=== PATIENT | female | born 1985 | race Asian ===

== ENCOUNTER 2018-09-07 05:56 | Inpatient (IN) | payer BC ==
[2018-09-07] MEDS ORDERED: hydrALAZINE 20 MG/ML VIAL SLOW IVP PRN ×2 (06:21→11:14)
[2018-09-07] MEDS ORDERED: Bicitra 30 ML UDCUP PO SCH (06:21)
[2018-09-07] MEDS ORDERED: CEFAZOLIN 2 GM in Premix Bag 1 BAG IVPB SCH (06:21)
[2018-09-07] MEDS ORDERED: Promethazine HCl 25 MG/ML VIAL IM PRN ×2 (06:21→08:36)
[2018-09-07] MEDS ORDERED: Ondansetron PF 4 MG/2 ML Vial IVP PRN ×3 (06:21→11:14)
[2018-09-07] MEDS ORDERED: Lactated Ringer's 1,000 ML IV SCH (06:21)
[2018-09-07 06:31] VITALS: BMI 32.0
[2018-09-07] MEDS ORDERED: Oxytocin 10 UNITS/ML VIAL ONE (06:41)
[2018-09-07] MEDS ORDERED: MORPHINE 5 MG/10 ML PF VIAL ONE (06:41)
[2018-09-07] MEDS ORDERED: Ondansetron PF 4 MG/2 ML Vial ONE ×2 (06:42→16:01)
[2018-09-07] MEDS ORDERED: Phenylephrine HCL 10 MG/ML VIAL ONE (06:42)
[2018-09-07] MEDS ORDERED: Ketorolac Tromethamine 30 MG/ML VIAL ONE ×2 (06:42→16:01)
[2018-09-07] MEDS ORDERED: ePHEDrine/0.9% NaCl/PF SYRINGE 50 mg/10 ml ONE (06:43)
[2018-09-07 06:48] LABS: Mean Corpuscular HGB CONC 33.1 g/dL (32.0-36.0); Mean Corpuscular Hemoglobin 28.1 pg (27.0-31.0); Mean Corpuscular Volume 84.7 fL (78.0-98.0); Mean Platelet Volume 7.5 fL (7.4-10.4); Platelet Count 240 thou/uL (130-400); RBC Distribution Width 15.8 % (11.5-14.5); Red Blood Cell (RBC) Count 4.26 mill/uL (4.20-5.40); White Blood Cell (WBC) Count 9.5 thou/uL (4.8-10.8)
[2018-09-07] MEDS ORDERED: Clindamycin/D5W 900 mg/50 ml Premix Bag ONE (07:22)
[2018-09-07] MEDS ORDERED: Gentamicin 80 MG/2 ML VIAL IVPB SCH (07:30)
[2018-09-07] MEDS ORDERED: Clindamycin/D5W 900 MG in Premix Bag 1 BAG IVPB SCH (07:30)
[2018-09-07] MEDS ORDERED: Ropivacaine 0.2% 550 ML 750 ML NERVE BLCK SCH (07:30)
[2018-09-07 07:34] LABS: HBSAg Index 0.24 S/CO (0-0.99); Hep B Surf Ag Non-Reactive S/CO (NonReactive); Syphilis Antibody Nonreactive (Nonreactive); Syphilis Antibody Index 0.02 S/CO (<1.00 Non-Reactive)
[2018-09-07] MEDS ORDERED: Gentamicin Sulfate 120 MG in Premix Bag 1 BAG IVPB SCH (07:45)
[2018-09-07] MEDS ORDERED: Ropivacaine HCl/PF 750 ML in Premix Bag 1 BAG NERVE BLCK SCH (07:45)
[2018-09-07] MEDS ORDERED: Bupivacaine 0.25% HCL 30 ML VIAL ONE (08:18)
[2018-09-07] MEDS ORDERED: diphenhydrAMINE 50 MG/ML VIAL IVP PRN (08:36)
[2018-09-07] MEDS ORDERED: Naloxone HCl 0.4 mg/ml Vial IVP PRN ×2 (08:36)
[2018-09-07] MEDS ORDERED: Meperidine HCl/PF 25 MG/ML VIAL SLOW IVP PRN (08:36)
[2018-09-07] MEDS ORDERED: HYDROmorphone 2 MG/ML VIAL SLOW IVP PRN (08:36)
[2018-09-07] MEDS ORDERED: Naloxone HCl 0.4 mg/ml Vial IV PRN (08:36)
[2018-09-07] MEDS ORDERED: Ketorolac Tromethamine 30 MG/ML VIAL IVP PRN (08:36)
[2018-09-07] MEDS ORDERED: Ondansetron HCl/PF 4 MG/2 ML Vial IVP PRN (08:36)
[2018-09-07] MEDS ORDERED: Promethazine HCl 25 MG SUPP PR PRN (08:36)
[2018-09-07] MEDS ORDERED: L&D-Morphine 4 MG/ML VIAL SLOW IVP PRN (08:36)
[2018-09-07] MEDS ORDERED: Communication Order-Pharmacy FS SCH (08:45)
[2018-09-07] MEDS ORDERED: NS / Oxytocin 40 units/1000ml 1,000 ML ONE (11:12)
[2018-09-07] MEDS ORDERED: NS / Oxytocin 40 units/1000ml 1,000 ML IV SCH (11:14)
[2018-09-07] MEDS ORDERED: diphenhydrAMINE 25 MG CAP PO PRN (11:14)
[2018-09-07] MEDS ORDERED: Bisacodyl 10 MG SUPP PR PRN (11:14)
[2018-09-07] MEDS ORDERED: Simethicone Chewable 80 MG TAB PO PRN (11:14)
[2018-09-07] MEDS ORDERED: HYDROcodone/Acetaminophen 5/325 mg Tablet PO PRN ×2 (11:14)
[2018-09-07] MEDS: Ibuprofen 800 MG TAB PO SCH ×2 (13:01→21:39)
--- NOTE | 2018-09-07 14:51 | OP ---
DATE OF PROCEDURE: 09/07/2018 PREOPERATIVE DIAGNOSES: 1. A 33-year-old female at 37 weeks. 2. Previous section with myomectomy. 3. Indicated delivery at 37 weeks. POSTOPERATIVE DIAGNOSES: 1. A 33-year-old female at 37 weeks. 2. Previous section with myomectomy. 3. Indicated delivery at 37 weeks. PROCEDURES PERFORMED: Repeat low-transverse section through vertical skin incision and On-Q pump placement. KNOT CUTTER: Dayana Soler PA-C, and Padmaja Bray, Real Estate Lawyer. COMPLICATIONS: None ESTIMATED BLOOD LOSS: 600 mL. ANESTHESIA: Spinal per Dr. Campbell. OPERATIVE FINDINGS: 1. Low-transverse hysterotomy without extension. Vigorous male infant, 6 pounds 14 ounces. Apgars 8 and 9 to [facility]. 2. Normal-appearing uterus, tubes, and ovaries bilaterally. 3. No intraabdominal adhesive disease. 4. Surgical site is hemostatic. DESCRIPTION OF PROCEDURE: The patient was taken back to the OR with IV fluids running. When she was in the OR, spinal anesthesia was obtained, and the patient in dorsal supine position with left lateral tilt. Prophylactic antibiotics were administered. The abdomen was prepped and draped and a Sellers catheter was placed using sterile technique. The surgeons were scrubbed in and anesthesia was tested and found to be adequate. A midline vertical skin incision was made with a scalpel, carried down through a previous scar through. The subcutaneous tissue was incised with a scalpel down to the level of the rectus muscle. The rectus fascia was then in the midline. The peritoneum was easily visualized and bluntly entered. The peritoneum was stretched laterally. An Suresh O retractor was placed into the peritoneal cavity for retraction, visualization, and protection of the wound. A bladder flap was created and the bladder was dissected away from the planned hysterotomy site. A low-transverse hysterotomy was made with a scalpel through a very thin lower uterine segment. The infant was then delivered without difficulty through the hysterotomy. The nose and mouth were suctioned. Cord was doubly clamped and cut, and the was handed off to special care nurse in attendance. Cord blood was collected. The placenta was delivered. Uterus was then exteriorized, massaged to firm, and cleared of clot and debris. The uterus was returned to the abdominal cavity. The hysterotomy was inspected with a small inferior extension noted on the right corner. This extension was repaired separately for faith of anatomy with Monocryl suture and hemostasis was noted. The full length of the incision was closed with Monocryl in a running locked fashion. A small area of bleeding in the right corner was oversewn with an additional imbricating layer using Monocryl suture. After hemostasis was noted , the hysterotomy and paracolic gutters were irrigated and suctioned dry. The hysterotomy was again inspected with no bleeding noted. The Suresh O retractor was removed from the abdominal cavity. The peritoneum and muscle were inspected with no areas of bleeding noted. The peritoneum was reapproximated with plain gut suture. The On-Q catheter tips were then placed through the skin, subcutaneous tissue, and tunneled between the rectus fascia and muscle on both sides of the incision, and parallel to the vertical incision. They were primed with 0.25% Marcaine. The rectus fascia was then reapproximated with PDS suture in a full length of the incision. After the fascia was reapproximated, the subcutaneous tissue was irrigated and dried. Any small areas of bleeding were controlled with Bovie cauterization. The subcutaneous tissue was closed in 2 layers using plain gut suture. The skin was then closed with 4-0 Monocryl and dressed with Dermabond dressing. Tegaderm dressings were applied over the On-Q catheter insertion sites. The patient was cleaned, dried, and taken to the recovery room and she tolerated the procedure well. The counts were correct. There were no complications. Job ID: [id number] [facility]
[2018-09-07] MEDS ORDERED: ePHEDrine 50 MG/ML VIAL ONE (16:01)
[2018-09-07] MEDS ORDERED: PHENYLEPHRINE-NS 100 MCG/ML 10 ML SYRINGE ONE (16:01)
[2018-09-07] MEDS: Docusate Calcium (SURFAK) 240 MG CAP PO SCH (21:39)
[2018-09-07] MEDS: Ferrous Sulfate 325 MG TAB PO SCH (21:43)
[2018-09-08] MEDS: Ibuprofen 800 MG TAB PO SCH (06:02)
[2018-09-08 06:36] LABS: Mean Corpuscular HGB CONC 32.1 g/dL (32.0-36.0); Mean Corpuscular Hemoglobin 27.5 pg (27.0-31.0); Mean Corpuscular Volume 85.6 fL (78.0-98.0); Mean Platelet Volume 7.5 fL (7.4-10.4); Platelet Count 208 thou/uL (130-400); RBC Distribution Width 15.8 % (11.5-14.5); Red Blood Cell (RBC) Count 3.99 mill/uL (4.20-5.40); White Blood Cell (WBC) Count 10.8 thou/uL (4.8-10.8)
[2018-09-08] MEDS: Docusate Calcium (SURFAK) 240 MG CAP PO SCH (08:25)
[2018-09-08] MEDS: Ferrous Sulfate 325 MG TAB PO SCH (08:25)
[2018-09-08] MEDS: Prenatal Vitamin 1 TAB PO SCH (08:25)
--- NOTE | 2018-09-08 10:16 | PDOC.PP ---
Post Progress Note Post Day #: 1 Subjective: doing well, minimal pain, ambulating to shower, tolerating diet PO intake tolerated: yes Flatus: yes Ambulation: yes Vital Signs (12 hours) Temp Pulse Resp BP Pulse Ox 09/08/18 08:06 98.0 F 76 20 102/58 L 96 09/08/18 04:36 97.9 F 80 20 100/59 L 09/07/18 23:56 98.4 F 68 20 102/55 L Weight Weight 175 lb - Physical Examination General: NAD Respiratory: non-labored breathing Abdominal: no distention Fundus firm & at: below umb Skin: CS incision dry & intact, no rash Neurological: no gross focal deficits Psychiatric: A&Ox3, normal affect Result Diagrams: 09/08/18 06:18 Additional Labs: Post Labs Blood Type O POSITIVE 09/07/18 07:28 Hep Bs Antigen Non-Reactive S/CO (NonReactive) 09/07/18 06:33 (1) 37 weeks gestation of Code(s): Z3A.37 - 37 WEEKS GESTATION OF Status: Acute (2) with history of uterine myomectomy Code(s): O34.29 - MATERNAL CARE DUE TO UTERINE SCAR FROM H PREVIOUS SURGERY Status: Acute (3) delivery delivered Code(s): O82 - ENCOUNTER FOR DELIVERY WITHOUT INDICATION Status: Acute - Assessment/Plan A/P: POD1 sp RCS @ 37 weeks for hx of myomectomy. Doing well, minimal pain. Discussed hold oral motrin this afternoon and to try Sprix for pain control. [place] for breakthrough if needed. OnQ and incision intact.
[2018-09-09] MEDS: Ferrous Sulfate 325 MG TAB PO SCH ×2 (06:50→09:17)
[2018-09-09] MEDS: Docusate Calcium (SURFAK) 240 MG CAP PO SCH ×2 (06:50→09:17)
--- NOTE | 2018-09-09 08:09 | PDOC.PP ---
Post Progress Note Post Day #: 2 Subjective: doing well, no concerns, SPRIX controlling pain PO intake tolerated: yes Flatus: yes Ambulation: yes Weight Weight 175 lb - Physical Examination Respiratory: non-labored breathing Abdominal: no distention Skin: CS incision dry & intact, no rash Neurological: no gross focal deficits Psychiatric: A&Ox3, normal affect Result Diagrams: 09/08/18 06:18 Additional Labs: Post Labs Blood Type O POSITIVE 09/07/18 07:28 Hep Bs Antigen Non-Reactive S/CO (NonReactive) 09/07/18 06:33 (1) 37 weeks gestation of Code(s): Z3A.37 - 37 WEEKS GESTATION OF Status: Acute (2) with history of uterine myomectomy Code(s): O34.29 - MATERNAL CARE DUE TO UTERINE SCAR FROM [facility] PREVIOUS SURGERY Status: Acute (3) delivery delivered Code(s): O82 - ENCOUNTER FOR DELIVERY WITHOUT INDICATION Status: Acute - Assessment/Plan POD2, doing well, pain controlled.
[2018-09-09 08:18] VITALS: BP 115/72; TEMP 98.4
[2018-09-09] MEDS: Prenatal Vitamin 1 TAB PO SCH (09:16)
== END 2018-09-09 16:45 | disposition home or self-care (01) | DRG 788 ==
LOC: L&D 05:56 → 3SW 11:25
PROVIDERS: ADMIT Obstetrics & Gynecology; ATTEND Obstetrics & Gynecology
PROC: 10D00Z1 Extraction of Products of Conception, Low, Open Approach (ICD-10-PCS; principal; 2018-09-07)
DX: O34.211 Maternal care for low transverse scar from previous cesarean delivery (principal); Z3A.37 37 weeks gestation of pregnancy; Z37.0 Single live birth
CPT/HCPCS: 36415; 36416; 51702; 85027; 86780; 86850; 86900; 86901; 87340; J0690; J1200; J1580; J1885; J2274; J2370; J2405; J2590; J2795; J3490; S0020